=== PATIENT | female | born 1945 | race Caucasian/White ===

== ENCOUNTER → 2019-12-12 | Outpatient (CLI) | payer MEDICARE, OTHER ==
[~2019-12-12] MED LIST: AMIO200T6 PO; APIX5TAB PO; ATOR10TA84 PO; DIGO125T84 PO; FURO20 PO; LISI-662 PO; MEMA10TA11 PO; METO25 PO
== END | disposition home or self-care (01) ==
LOC: RADPV 10:44
PROVIDERS: ATTEND Internal Medicine Geriatric Medicine
DX: S92.351A Displaced fracture of fifth metatarsal bone, right foot, initial encounter for closed fracture (principal); M77.32 Calcaneal spur, left foot; M19.072 Primary osteoarthritis, left ankle and foot; M77.31 Calcaneal spur, right foot; M85.871 Other specified disorders of bone density and structure, right ankle and foot; M19.071 Primary osteoarthritis, right ankle and foot; X58.XXXA Exposure to other specified factors, initial encounter; Y93.89 Activity, other specified; Y92.89 Other specified places as the place of occurrence of the external cause; Y99.8 Other external cause status